=== PATIENT | female | born 2000 | race Caucasian/White ===

== ENCOUNTER 2023-03-10 20:18 | Emergency (ER) | payer OTHER ==
[~2023-03-10] VITALS: Ht 157.5 cm; Wt 65.8 kg
[2023-03-10 20:39] VITALS: BP 125/71; PULSE 73; RESP 20; TEMP 97.8; O2SAT 100
--- NOTE | 2023-03-10 20:47 | NUR ---
PT TRIAGED AND AMBULATED TO IN STABLE CONDITION.
--- NOTE | 2023-03-11 00:31 | NUR ---
Pt called from lobby to [facility]. No response.
--- NOTE | 2023-03-11 00:31 | NUR ---
Joyce galvan in [facility] - 03/11/23 at 0031 by GABBY PT TO [facility]
--- NOTE | 2023-03-11 00:39 | NUR ---
Called patient from lobby, no response.
[2023-03-11 00:40] VITALS: BP 125/71; PULSE 73; RESP 20; TEMP 97.8; O2SAT 100
--- NOTE | 2023-03-11 00:40 | NUR ---
Patient left without being seen by [facility]
== END 2023-03-11 00:40 | disposition left against medical advice (07) ==
LOC: MED 20:18
DX: G43.909 Migraine, unspecified, not intractable, without status migrainosus (principal); Z53.21 Procedure and treatment not carried out due to patient leaving prior to being seen by health care provider
CPT/HCPCS: 81025; 99281